=== PATIENT | female | born 1955 | race Caucasian/White ===

== ENCOUNTER → 2017-04-22 | Outpatient (CLI) | payer OTHER ==
[~2017-04-22] MED LIST: ADVAIR 250/501 DISK; ADVAIR 250/501 DISK IH; CIPRO500 MG PO; CLARITIN10 M3 PO; COMBIVENT RESPIM4 GM IH; DILAUDID2 MG PO; EXCEDRIN MIGRA1 EAC3 PO; FIORICET 50-301 EAC1 PO; FLAGYL500 MG PO; FLONASE16 G1 BOTH NARES; KLONOPIN0.5 M1 PO; LO-DOSE ASPIRIN81 M2 PO; METOCLOPRAMIDE10 MG PO; ONDANSETRON HCL4 MG PO; PERCOCET 10/1 TABLET PO; PERCOCET 5/31 TABLET PO; RANITIDINE HCL150 MG PO; SPIRIVA RESPIMAT4 G1 IH; SYMBICORT60 INHALAT IH; SYNTHROID125 MCG PO; SYNTHROID88 MCG PO; VENTOLIN HFA18 GM IH; XANAX0.5 MG PO
== END | disposition home or self-care (01) ==
LOC: OPR 07:34 → EDSTATUS 08:00
PROC: 0GB23ZX Excision of Left Adrenal Gland, Percutaneous Approach, Diagnostic (ICD-10-PCS; principal; 2017-04-22)
DX: C79.72 Secondary malignant neoplasm of left adrenal gland (principal); C34.90 Malignant neoplasm of unspecified part of unspecified bronchus or lung; E27.9 Disorder of adrenal gland, unspecified; E03.9 Hypothyroidism, unspecified; E78.00 Pure hypercholesterolemia, unspecified; J44.9 Chronic obstructive pulmonary disease, unspecified; F41.9 Anxiety disorder, unspecified; Z85.3 Personal history of malignant neoplasm of breast; Z79.82 Long term (current) use of aspirin; F17.210 Nicotine dependence, cigarettes, uncomplicated
CPT/HCPCS: 77012; 88305; 88341 TC; 88342 TC; J2250; J2310; J3010

== ENCOUNTER 2017-05-13 21:44 | Inpatient (IN) | payer OTHER ==
[~2017-05-13] VITALS: Ht 180.3 cm; Wt 73.2 kg
[~2017-05-13 21:44] MED LIST changes: +SINGULAIR10 MG PO
[2017-05-13 22:05] LABS: HEMATOCRIT 37.8 % (36.0-46.0); MCH 31.9 PG (29.0-34.0); MCHC 34.1 G/DL (30.0-36.0); MCV 93.3 FL (83-99); RBC DIS.WIDTH-CV 13.9 % (11.8-14.6); RBC DIS.WIDTH-SD 46.9 % (39-53); RED BLOOD COUNT 4.05 M/uL (3.80-5.20); WHITE BLOOD COUNT 18.2 K/uL (4.1-10.2)
[2017-05-13 22:16] LABS: HEMOGLOBIN 12.9 G/DL (11.9-15.5)
[2017-05-13 22:18] LABS: CHLORIDE 101 mEq/L (99-109); POTASSIUM 3.6 mEq/L (3.7-5.4); SODIUM 135 mEq/L (136-147)
[2017-05-13 22:20] LABS: GLUCOSE 127 mg/dL (70-99)
[2017-05-13 22:24] LABS: CREATININE 0.7 mg/dL (0.6-1.3); GFR ESTIMATE (CALCULATED) > 59 mL/min/
[2017-05-13 22:25] LABS: UREA NITROGEN (BUN) 9 mg/dL (9-23)
[2017-05-13 22:31] LABS: TROP-I INTERPRETATION NEGATIVE; TROPONIN-I < 0.01 ng/mL (0.0-0.30)
[2017-05-13 22:38] LABS: APPEARANCE CLEAR ((CLEAR)); BILIRUBIN NEGATIVE; BLOOD MODERATE; COLOR YELLOW ((YELLOW)); GLUCOSE (STRIP) NEGATIVE; KETONES NEGATIVE; LEUKOCYTES NEGATIVE; NITRITE NEGATIVE; PROTEIN (STRIP) NEGATIVE; SPECIFIC GRAVITY 1.011 (1.000-1.030); UROBILINOGEN 0.2 MG/DL (0.2-1.0)
[2017-05-13 22:49] LABS: BACTERIA RARE /HPF; CALCIUM OXALATE CRYSTALS 1+ /HPF; EPITHELIAL CELLS NONE SEEN /HPF; MUCUS TRACE /LPF; UCUL ADDED? NO; WHITE BLOOD CELLS 0-5 /HPF (0-5)
[2017-05-13 22:53] LABS: PLATELET COUNT 126 K/uL (156-360)
[2017-05-13 22:56] LABS: INTER. NORMALIZED RATIO 1.3
[2017-05-13 22:58] LABS: PTT 25.2 SEC (25-37)
[2017-05-14] MEDS ORDERED: PHENERGAN-CODE120 ML PO (01:36)
[2017-05-14] MEDS ORDERED: LEVOTHYROXINE125 MCG PO (01:37)
[2017-05-14] MEDS ORDERED: ALPRAZOLAM0.5 MG PO (01:39)
[2017-05-14] MEDS ORDERED: LO-DOSE ASPIRIN81 M2 PO (01:40)
[2017-05-14] MEDS ORDERED: AMOX TR-K CLV1 EAC4 PO (01:44)
[2017-05-14 05:20] VITALS: BP 104/59
[2017-05-14 08:00] VITALS: BP 117/72
[2017-05-14 16:23] VITALS: BP 112/59
[2017-05-14 20:43] VITALS: BP 126/74
[2017-05-14 23:16] VITALS: BP 114/63
[2017-05-15 04:43] VITALS: BP 115/69
[2017-05-15 05:41] LABS: BASOPHIL (%) 0.1 % (0-1); EOSINOPHIL (%) 0 % (0-5); HEMATOCRIT 32.9 % (36.0-46.0); IMMATURE GRANULOCYTE (%) 1.8 % (0.0-0.7); LYMPHOCYTE (%) 3.7 % (15-42); LYMPHOCYTE COUNT 0.7 K/uL (1.0-2.8); MCH 30.9 PG (29.0-34.0); MCHC 32.8 G/DL (30.0-36.0); MONOCYTE (%) 2.6 % (3-12); MONOCYTE COUNT 0.5 K/uL (0-0.8); NEUTROPHIL (%) 91.8 % (45-76); NEUTROPHIL COUNT 16.6 K/uL (1.8-6.4); PLATELET COUNT 112 K/uL (156-360); RBC DIS.WIDTH-SD 47.1 % (39-53); WHITE BLOOD COUNT 18.1 K/uL (4.1-10.2)
[2017-05-15 05:42] LABS: HEMOGLOBIN 10.8 G/DL (11.9-15.5)
[2017-05-15 06:06] LABS: CHLORIDE 110 MEQ/L (99-109); CREATININE 0.5 MG/DL (0.6-1.3); GFR ESTIMATE (CALCULATED) > 59 mL/min/; GLUCOSE 186 mg/dL (70-99); POTASSIUM 3.8 MEQ/L (3.7-5.4); SODIUM 141 MEQ/L (136-147); UREA NITROGEN (BUN) 14 mg/dL (9-23)
[2017-05-15 07:07] VITALS: BP 120/72
[2017-05-15 13:00] VITALS: BP 125/67
[2017-05-15 16:19] VITALS: BP 117/59
[2017-05-15 16:58] VITALS: BP 125/68
[2017-05-15 20:14] VITALS: BP 140/81
[2017-05-16] VITALS (7 sets, daily range): BP systolic 117–155; BP diastolic 67–90
[2017-05-16 06:47] LABS: HEMATOCRIT 33.2 % (36.0-46.0); HEMOGLOBIN 10.9 G/DL (11.9-15.5); MCH 31.3 PG (29.0-34.0); MCHC 32.8 G/DL (30.0-36.0); MCV 95.4 FL (83-99); PLATELET COUNT 123 K/uL (156-360); RBC DIS.WIDTH-CV 14.5 % (11.8-14.6); RBC DIS.WIDTH-SD 49.3 % (39-53); RED BLOOD COUNT 3.48 M/uL (3.80-5.20); WHITE BLOOD COUNT 13.1 K/uL (4.1-10.2)
[2017-05-16] MEDS ORDERED: DELTASONE20 M1 PO (12:44)
[2017-05-16] MEDS ORDERED: AUGMENTIN875 MG PO (12:44)
[2017-05-17 03:50] VITALS: BP 122/72
[2017-05-17 07:05] VITALS: BP 128/72
[2017-05-17 08:00] VITALS: BP 115/79
[2017-05-17] MEDS ORDERED: ZITHROMAX250 MG PO (09:49)
[2017-05-17 11:28] VITALS: BP 115/56
== END 2017-05-17 13:24 | disposition home health service (06) | DRG 193 ==
LOC: EME 21:44 → 4EAST 05-14 02:46 → EDOF 05-14 02:46 → ENRESERV 05-14 02:47 → 4EAST 05-14 05:04 → ENRESERV 05-15 11:54 → 5EAST 05-15 16:47 → ENPENDDIS 05-17 → 5EAST 05-17 13:24
PROVIDERS: Hospitalist; Physician Assistant
DX: J18.9 Pneumonia, unspecified organism (principal); J96.01 Acute respiratory failure with hypoxia; J44.0 Chronic obstructive pulmonary disease with (acute) lower respiratory infection; J44.1 Chronic obstructive pulmonary disease with (acute) exacerbation; C34.92 Malignant neoplasm of unspecified part of left bronchus or lung; E03.9 Hypothyroidism, unspecified; F17.210 Nicotine dependence, cigarettes, uncomplicated; H66.91 Otitis media, unspecified, right ear; Z80.1 Family history of malignant neoplasm of trachea, bronchus and lung; Z82.49 Family history of ischemic heart disease and other diseases of the circulatory system; Z92.21 Personal history of antineoplastic chemotherapy
CPT/HCPCS: 71046; 71250; 78582; 80048; 81003; 83605; 83880; 84484; 85025; 85027; 85379; 85610; 85730; 87040; 87070; 87077; 87106; 87181; 87185; 87205; 87449; 87502; 87641; 87651 90; 93005; 93970; 94640; 94640 76; 94644; 94668; 94799; 99202; 99281; 99285; A9540; A9567; J1650; J2543; J2930; J3370; J7030; J7050; J7512; S0030